=== PATIENT | female | born 1950 | race Hispanic/Latino ===

== ENCOUNTER 2018-10-04 22:24 | Emergency (ER) | payer OTHER, MEDICARE | END 2018-10-05 00:08 | disposition home or self-care (01) | LOC: EDH 22:24 | DX: I83.812 Varicose veins of left lower extremity with pain (principal); E11.9 Type 2 diabetes mellitus without complications; E07.9 Disorder of thyroid, unspecified; Z90.49 Acquired absence of other specified parts of digestive tract; Z90.89 Acquired absence of other organs; Z88.1 Allergy status to other antibiotic agents ==

== ENCOUNTER 2018-12-29 08:56 | Observation (INO) | payer OTHER, MEDICARE ==
[~2018-12-29] VITALS: Ht 170.2 cm; Wt 79.1 kg
[2018-12-29 09:22] LABS: BASOPHILS % (AUTO) 0.6 % (0.0-5.0); EOSINOPHILS % (AUTO) 0.1 % (0.0-8.0); HEMATOCRIT 39.5 % (36-48); LYMPHOCYTES % (AUTO) 8.7 % (21.0-51.0); MEAN CORPUSCULAR HEMOGLOBIN 29.8 pg (27.0-33.0); MEAN CORPUSCULAR HGB CONC 33.6 g/dL (32.0-36.0); MEAN CORPUSCULAR VOLUME 88.7 fL (79-99); MONOCYTES % (AUTO) 10.4 % (3.0-13.0); NEUTROPHILS % (AUTO) 80.2 % (40.0-77.0); PLATELET COUNT (AUTO) 165 K/uL (130-400); RED BLOOD CELL COUNT(AUTO) 4.45 MIL/uL (4.00-5.50); RED CELL DISTRIBUTION WIDTH 13.7 % (11.0-15.5); WHITE BLOOD COUNT (AUTO) 5.4 K/uL (4.8-10.8)
[2018-12-29 09:26] LABS: CREATININE 0.8 mg/dL (0.5-1.5); POTASSIUM 3.8 mmol/L (3.5-5.1)
[2018-12-29 09:41] LABS: INR 0.98 (0.85-1.15); PARTIAL THROMBOPLASTIN TIME 28.2 SEC (26.3-35.5); PROTHROMBIN TIME 10.3 SEC (9.6-11.6)
[2018-12-29 09:45] LABS: ALBUMIN 3.2 g/dL (3.5-5.0); BILIRUBIN,TOTAL 0.3 mg/dL (0.2-1.0); TOTAL PROTEIN, SERUM 6.5 g/dL (6.0-8.3)
[2018-12-29 09:56] LABS: APPEARANCE,URINE Clear (CLEAR); BILIRUBIN,URINE Negative (NEGATIVE); COLOR,URINE Yellow (YELLOW); GLUCOSE, URINE (UA) >=1000 mg/dL (NEGATIVE); KETONES,URINE Trace mg/dL (NEGATIVE); LEUKOCYTE ESTERASE ,URINE Negative (NEGATIVE); NITRATE,URINE Negative (NEGATIVE); OCCULT BLOOD,URINE Negative (NEGATIVE); PROTEIN,URINE Negative (NEGATIVE); UROBILINOGEN,URINE 0.2 mg/dL (0.2-1.0)
[2018-12-29 10:07] LABS: BACTERIA,URINE Rare /HPF (None Seen); RBC,URINE 0-1 /HPF (0-1); SQUAMOUS EPITHELIAL CELL,UR Rare /HPF (0-2); WBC,URINE 0-1 /HPF (0-1)
[2018-12-29] MEDS ORDERED: ACETAMINOPHEN 325 MG TAB ONE ×2 (11:44→22:34)
[2018-12-29] MEDS ORDERED: CEFTRIAXONE SODIUM 1 GM ONE (11:58)
[2018-12-29] MEDS ORDERED: SODIUM CHLORIDE 0.9% 100 ML IV ONE (11:58)
[2018-12-29] MEDS ORDERED: 1/2 NORMAL SALINE 1,000 ML IV SCH (14:45)
[2018-12-29] MEDS ORDERED: METFORMIN HCL 500 MG TABLET ONE (16:33)
[2018-12-29 19:15] VITALS: BP 119/60
--- NOTE | 2018-12-29 19:30 | NUR ---
ADMISSION ASSESSMENT Received pt from ER. Pt alert and oriented, no c/o of dizzyness but pt does sound like she has a cold and has a dry cough. 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 Pt lungs clear, bs x 4 quadrants present. Patent IV running 1/2NS. pending GI stool PCR and Flu a/b swab. Pt oriented to bed controls and room, will continue to monitor
[2018-12-29] MEDS: INSULIN R PO SS1 SQ SCH (21:00)
[2018-12-29] MEDS ORDERED: ACETAMINOPHEN 325 MG TAB PO PRN (22:30)
[2018-12-29 23:21] VITALS: BP 117/60
[2018-12-29] MEDS ORDERED: METF-444 PO (23:56)
[2018-12-29] MEDS ORDERED: DULA1.5P SQ (23:56)
[2018-12-29] MEDS ORDERED: LEVO88TA4 PO (23:56)
[2018-12-29] MEDS ORDERED: METO-408 PO (23:56)
[2018-12-29] MEDS ORDERED: OMEP40CA37 PO (23:56)
[2018-12-30 03:40] VITALS: BP 116/47
[2018-12-30 05:09] LABS: CREATININE 0.7 mg/dL (0.5-1.5); HEMATOCRIT 38.1 % (36-48); MEAN CORPUSCULAR HEMOGLOBIN 30.4 pg (27.0-33.0); MEAN CORPUSCULAR VOLUME 89.4 fL (79-99); NUCLEATED RED BLOOD CELLS 0.1 % (0.0-0.19); PLATELET COUNT (AUTO) 165 K/uL (130-400); POTASSIUM 3.7 mmol/L (3.5-5.1); RED BLOOD CELL COUNT(AUTO) 4.26 MIL/uL (4.00-5.50); RED CELL DISTRIBUTION WIDTH 13.9 % (11.0-15.5)
[2018-12-30] MEDS: INSULIN R PO SS1 SQ SCH (06:14)
--- NOTE | 2018-12-30 06:45 | NUR ---
DR. CLEMENCIA HESS, DC ORDERS RECEIVED
[2018-12-30] MEDS ORDERED: LEVOTHYROXINE 88 MCG TABLET PO SCH (07:30)
[2018-12-30] MEDS ORDERED: METFORMIN HCL 500 MG TABLET PO SCH (08:00)
[2018-12-30 08:21] VITALS: BP 109/78
[2018-12-30] MEDS ORDERED: METOPROLOL TARTRATE 25 MG TAB PO SCH (09:00)
[2018-12-30] MEDS ORDERED: OSELTAMIVIR PHOSPHATE 75 MG CAP PO SCH (09:00)
[2018-12-30] MEDS ORDERED: PANTOPRAZOLE SODIUM 40 MG TABLET.DR PO SCH (09:00)
[2018-12-30] MEDS ORDERED: CEFTRIAXONE SODIUM 1 GM IVP SCH (09:00)
--- NOTE | 2018-12-30 12:00 | NUR ---
PATIENT D/C HOME USING TEACH BACK TECHNIQUE RE: FOLLOW-UP APPOINTMENT WITH ON Thursday @ 3:30 P.M. IF ANY QUESTIONS PLEASE CALL HIS OFFICE AT [phone] A prescription for tamiflu will be given to you at discharge make sure to buy your prescription at discharge at your local pharmacy and take until finish for 5 days. if cough or cogestion worsens make sure to call primary doctor for recommendations. If fevers greater than 100.5 call your primary doctor. IV OUT, INTACT, AOX3, DENIES ANY DISTRESS, TELE REMOVED. SISTERS AT BEDSIDE.
[2019-01-02] MEDS ORDERED: **HM** TRULICITY 1.5MG SQ SCH (09:00)
[2019-01-05] MEDS ORDERED: NON-FORMULARY MEDICATION 1 EACH (Dulaglutide (Trulicity) 1.5 MG) SQ SCH (09:00)
== END 2018-12-30 13:00 | disposition home or self-care (01) ==
LOC: EDH 08:56 → EEVIPCON 08:56 → EDHIP 13:55 → 4BH 18:58
PROVIDERS: ADMIT Internal Medicine; ATTEND Internal Medicine
DX: K52.9 Noninfective gastroenteritis and colitis, unspecified (principal); R55 Syncope and collapse; I12.9 Hypertensive chronic kidney disease with stage 1 through stage 4 chronic kidney disease, or unspecified chronic kidney disease; N18.9 Chronic kidney disease, unspecified; E11.22 Type 2 diabetes mellitus with diabetic chronic kidney disease; R79.89 Other specified abnormal findings of blood chemistry; E86.0 Dehydration; K21.9 Gastro-esophageal reflux disease without esophagitis; M19.90 Unspecified osteoarthritis, unspecified site; S09.90XA Unspecified injury of head, initial encounter; W19.XXXA Unspecified fall, initial encounter; Y93.89 Activity, other specified; Y92.89 Other specified places as the place of occurrence of the external cause; Y99.8 Other external cause status
CPT/HCPCS: 36415 ×2; 70450; 71045; 80048; 80053; 81001; 82550 ×3; 82948 ×3; 83874; 84484 ×3; 85025; 85027; 85378; 85610; 85730; 87804 ×2; 93005; 93970; 96361; 96374; 99284; A4218; G0378 ×23; J0696 ×2

== ENCOUNTER → 2019-06-20 | Outpatient (CLI) | payer OTHER, MEDICARE ==
[~2019-06-20] MED LIST: DULA1.5P SQ; LEVO88TA4 PO; METF-444 PO; METO-408 PO; OMEP40CA37 PO
== END | disposition home or self-care (01) ==
LOC: RAH 13:00
PROVIDERS: ATTEND Internal Medicine
DX: E04.1 Nontoxic single thyroid nodule (principal)
CPT/HCPCS: 76536

== ENCOUNTER → 2019-07-15 | Outpatient (CLI) | payer MEDICARE, OTHER ==
[~2019-07-15] MED LIST changes: +OMEP40CA13 PO; -OMEP40CA37 PO
[2019-07-15 10:44] LABS: EOSINOPHILS % (AUTO) 0.8 % (0.0-8.0); LYMPHOCYTES % (AUTO) 26.4 % (21.0-51.0); MEAN CORPUSCULAR HEMOGLOBIN 29.9 pg (27.0-33.0); MEAN CORPUSCULAR HGB CONC 33.7 g/dL (32.0-36.0); MEAN CORPUSCULAR VOLUME 88.7 fL (79-99); MONOCYTES % (AUTO) 6.5 % (3.0-13.0); NEUTROPHILS % (AUTO) 65.3 % (40.0-77.0); PLATELET COUNT (AUTO) 215 K/uL (130-400); RED BLOOD CELL COUNT(AUTO) 5.07 MIL/uL (4.00-5.50)
[2019-07-15 10:58] LABS: HEMOGLOBIN A1C 7.8 % (4.0-6.0)
[2019-07-15 11:10] LABS: APPEARANCE,URINE Clear (CLEAR); BILIRUBIN,URINE Negative (NEGATIVE); COLOR,URINE Yellow (YELLOW); GLUCOSE, URINE (UA) >=1000 mg/dL (NEGATIVE); KETONES,URINE Negative (NEGATIVE); LEUKOCYTE ESTERASE ,URINE Negative (NEGATIVE); NITRATE,URINE Negative (NEGATIVE); OCCULT BLOOD,URINE Negative (NEGATIVE); PROTEIN,URINE Negative (NEGATIVE); UROBILINOGEN,URINE 0.2 mg/dL (0.2-1.0)
[2019-07-15 11:28] LABS: BACTERIA,URINE Rare /HPF (None Seen); RBC,URINE 0-1 /HPF (0-1); SQUAMOUS EPITHELIAL CELL,UR Rare /HPF (0-2); WBC,URINE 0-1 /HPF (0-1)
[2019-07-15 11:37] LABS: ALBUMIN 3.8 g/dL (3.5-5.0); BILIRUBIN,TOTAL 0.6 mg/dL (0.2-1.0); POTASSIUM 4.4 mmol/L (3.5-5.1); THYROID STIMULATING HORMONE 2.76 uIU/mL (0.36-3.74); TOTAL PROTEIN, SERUM 7.7 g/dL (6.0-8.3)
== END | disposition home or self-care (01) ==
LOC: LAB 09:33
PROVIDERS: ATTEND Internal Medicine
DX: E11.9 Type 2 diabetes mellitus without complications (principal); I10 Essential (primary) hypertension; Z79.899 Other long term (current) drug therapy
CPT/HCPCS: 36415; 80053; 80061; 81001; 82043; 83036; 84443; 85025; 87088; A6260

== ENCOUNTER → 2019-08-01 | Outpatient (CLI) | payer OTHER, MEDICARE ==
--- NOTE | 2019-08-01 09:25 | NUR ---
U/S GUIDED BX LEFT THYROID NODULE PROCEDURE PERFORMED BY DR. FLORES. PUNCTURE SITE LEFT SIDE NECK. PATIENT TOLERATED PROCEDURE WELL. SPECIMEN X 5 COLLECTED AND SENT TO LAB. END OF PROCEDURE AT 930. BIOPSY NEEDLE REMOVED AND DRESSING APPLIED. NO BLEEDING NOTED. PATIENT GIVEN DISCHARGE INSTRUCTIONS. VERBALIZED UNDERSTANDING. PT DISCHARGED STABLE, AAO X 3, WITH NO C/O PAIN.
[2019-08-01 09:31] LABS: INR 0.96 (0.85-1.15); PARTIAL THROMBOPLASTIN TIME 26.2 SEC (26.3-35.5); PROTHROMBIN TIME 9.9 SEC (9.6-11.6)
== END ==
LOC: RAH 10:00
PROVIDERS: ATTEND Internal Medicine
DX: E04.1 Nontoxic single thyroid nodule (principal); E78.5 Hyperlipidemia, unspecified; M19.90 Unspecified osteoarthritis, unspecified site; H40.9 Unspecified glaucoma; K21.9 Gastro-esophageal reflux disease without esophagitis; I12.9 Hypertensive chronic kidney disease with stage 1 through stage 4 chronic kidney disease, or unspecified chronic kidney disease; E11.22 Type 2 diabetes mellitus with diabetic chronic kidney disease; N18.2 Chronic kidney disease, stage 2 (mild); Z79.84 Long term (current) use of oral hypoglycemic drugs; Z79.899 Other long term (current) drug therapy; Z72.89 Other problems related to lifestyle; Z98.890 Other specified postprocedural states; Z90.49 Acquired absence of other specified parts of digestive tract; Z88.1 Allergy status to other antibiotic agents; Z82.49 Family history of ischemic heart disease and other diseases of the circulatory system; Z83.3 Family history of diabetes mellitus
CPT/HCPCS: 36415; 60100; 76942; 85610; 85730; 88172; 88173; 88305; C1887

== ENCOUNTER 2020-07-24 07:40 | Day surgery (SDC) | payer OTHER, MEDICARE ==
[~2020-07-24] VITALS: Ht 170.2 cm; Wt 71.2 kg
[~2020-07-24 07:40] MED LIST changes: +SODIUM CHLORIDE 0.9% 1000ML 1,000 ML IV ONE
[2020-07-24 07:55] VITALS: BP 131/64
[2020-07-24] MEDS ORDERED: MULT-1258 PO (08:43)
[2020-07-24] MEDS ORDERED: EMPA25TA PO (08:43)
[2020-07-24] MEDS ORDERED: CINN500C PO (08:43)
[2020-07-24] MEDS ORDERED: ATOR20TA65 PO (08:43)
[2020-07-24] MEDS ORDERED: PROPOFOL 10 MG/ML 20ML VIAL IV ONE (11:02)
[2020-07-24] MEDS ORDERED: MIDAZOLAM HCL 1 MG/ML 2ML VIAL ONE (11:02)
[2020-07-24 11:40] VITALS: BP 86/37
[2020-07-24 11:45] VITALS: BP 88/35
[2020-07-24 11:50] VITALS: BP 102/40
[2020-07-24 11:55] VITALS: BP 102/43
[2020-07-24 12:12] VITALS: BP 98/43
== END 2020-07-24 12:29 | disposition home or self-care (01) ==
LOC: ENDO 07:40 → DAH 07:40 → ENDO 12:29
PROVIDERS: ATTEND Internal Medicine Gastroenterology
DX: R10.31 Right lower quadrant pain (principal); R93.2 Abnormal findings on diagnostic imaging of liver and biliary tract; R11.2 Nausea with vomiting, unspecified; Z20.828 Contact with and (suspected) exposure to other viral communicable diseases; E78.5 Hyperlipidemia, unspecified; K21.9 Gastro-esophageal reflux disease without esophagitis; E11.9 Type 2 diabetes mellitus without complications; E06.3 Autoimmune thyroiditis; E03.9 Hypothyroidism, unspecified; Z90.49 Acquired absence of other specified parts of digestive tract; Z79.84 Long term (current) use of oral hypoglycemic drugs; Z79.899 Other long term (current) drug therapy; Z88.1 Allergy status to other antibiotic agents
CPT/HCPCS: 36415; 43237; 45378; 82948 ×3; A4215; A4221; A4222; A4223; A4606; A4620; A4663; C9803; J2250; J2704; J7030; U0003

== ENCOUNTER → 2020-12-26 | Outpatient (CLI) | payer OTHER, MEDICARE ==
[~2020-12-26] MED LIST changes: +ATOR20TA65 PO; +CINN500C PO; +EMPA25TA PO; +MULT-1258 PO; -SODIUM CHLORIDE 0.9% 1000ML 1,000 ML IV ONE
[2020-12-26 08:47] LABS: BASOPHILS % (AUTO) 0.8 % (0.0-5.0); EOSINOPHILS % (AUTO) 1.5 % (0.0-8.0); HEMATOCRIT 45.8 % (36-48); LYMPHOCYTES % (AUTO) 31.8 % (21.0-51.0); MEAN CORPUSCULAR HEMOGLOBIN 29.4 pg (27.0-33.0); MEAN CORPUSCULAR HGB CONC 32.3 g/dL (32.0-36.0); MEAN CORPUSCULAR VOLUME 90.9 fL (79-99); MONOCYTES % (AUTO) 6.1 % (3.0-13.0); NEUTROPHILS % (AUTO) 59.3 % (40.0-77.0); PLATELET COUNT (AUTO) 244 K/uL (130-400); RED BLOOD CELL COUNT(AUTO) 5.04 MIL/uL (4.00-5.50); RED CELL DISTRIBUTION WIDTH 13.4 % (11.0-15.5); WHITE BLOOD COUNT (AUTO) 6.2 K/uL (4.8-10.8)
[2020-12-26 09:05] LABS: HEMOGLOBIN A1C 6.8 % (4.0-6.0)
[2020-12-26 09:34] LABS: ALBUMIN 4.1 g/dL (3.5-5.0); BILIRUBIN,DIRECT 0.1 mg/dL (0.0-0.3); BILIRUBIN,TOTAL 0.5 mg/dL (0.2-1.0); CREATININE 0.7 mg/dL (0.5-1.5); POTASSIUM 4.5 mmol/L (3.5-5.1); THYROID STIMULATING HORMONE 2.63 uIU/mL (0.36-3.74); TOTAL PROTEIN, SERUM 7.9 g/dL (6.0-8.3)
== END | disposition home or self-care (01) ==
LOC: LAB 08:03
PROVIDERS: ATTEND Internal Medicine
DX: E03.9 Hypothyroidism, unspecified (principal); E06.3 Autoimmune thyroiditis; E11.22 Type 2 diabetes mellitus with diabetic chronic kidney disease
CPT/HCPCS: 36415; 80053; 80061; 80076; 82043; 82306; 82607; 83036; 84443; 85025

== ENCOUNTER → 2021-02-07 | Outpatient (CLI) | payer OTHER, MEDICARE | END | disposition home or self-care (01) | LOC: OIH 15:21 | PROVIDERS: ATTEND Internal Medicine | DX: R05 Cough (principal) | CPT/HCPCS: 71046 ==

== ENCOUNTER → 2021-04-18 | Outpatient (CLI) | payer OTHER, MEDICARE ==
[~2021-04-18] MED LIST changes: -OMEP40CA13 PO; +OMEP40CA21 PO
[2021-04-18 09:02] LABS: BASOPHILS % (AUTO) 0.6 % (0.0-5.0); EOSINOPHILS % (AUTO) 1.5 % (0.0-8.0); LYMPHOCYTES % (AUTO) 26.8 % (21.0-51.0); MEAN CORPUSCULAR HEMOGLOBIN 29.5 pg (27.0-33.0); MEAN CORPUSCULAR HGB CONC 32.1 g/dL (32.0-36.0); MEAN CORPUSCULAR VOLUME 91.9 fL (79-99); MONOCYTES % (AUTO) 7.2 % (3.0-13.0); NEUTROPHILS % (AUTO) 63.4 % (40.0-77.0); PLATELET COUNT (AUTO) 271 K/uL (130-400); RED BLOOD CELL COUNT(AUTO) 4.68 MIL/uL (4.00-5.50); RED CELL DISTRIBUTION WIDTH 13.3 % (11.0-15.5); WHITE BLOOD COUNT (AUTO) 6.5 K/uL (4.8-10.8)
[2021-04-18 09:42] LABS: ALBUMIN 3.7 g/dL (3.5-5.0); BILIRUBIN,DIRECT 0.1 mg/dL (0.0-0.3); BILIRUBIN,TOTAL 0.4 mg/dL (0.2-1.0); CREATININE 0.8 mg/dL (0.5-1.5); POTASSIUM 4.5 mmol/L (3.5-5.1); THYROID STIMULATING HORMONE 3.19 uIU/mL (0.36-3.74); TOTAL PROTEIN, SERUM 7.4 g/dL (6.0-8.3)
== END | disposition home or self-care (01) ==
LOC: LAB 07:54
PROVIDERS: ATTEND Internal Medicine
DX: E06.3 Autoimmune thyroiditis (principal); E11.22 Type 2 diabetes mellitus with diabetic chronic kidney disease; E78.5 Hyperlipidemia, unspecified; I70.0 Atherosclerosis of aorta; K76.0 Fatty (change of) liver, not elsewhere classified; R05 Cough
CPT/HCPCS: 36415; 80053; 80061; 80076; 82043; 82306; 82607; 83036; 84443; 85025

== ENCOUNTER → 2022-04-11 | Outpatient (CLI) | payer OTHER, MEDICARE | END | disposition home or self-care (01) | LOC: RAH 09:05 | PROVIDERS: ATTEND Internal Medicine | DX: Z12.31 Encounter for screening mammogram for malignant neoplasm of breast (principal) | CPT/HCPCS: 77067 ==

== ENCOUNTER → 2022-04-16 | Outpatient (CLI) | payer OTHER, MEDICARE ==
[2022-04-16 08:31] LABS: BASOPHILS % (AUTO) 0.7 % (0.0-5.0); EOSINOPHILS % (AUTO) 1.7 % (0.0-8.0); HEMATOCRIT 46.5 % (36-48); LYMPHOCYTES % (AUTO) 26.2 % (21.0-51.0); MEAN CORPUSCULAR HEMOGLOBIN 29.1 pg (27.0-33.0); MEAN CORPUSCULAR HGB CONC 32.3 g/dL (32.0-36.0); MEAN CORPUSCULAR VOLUME 90.3 fL (79-99); MONOCYTES % (AUTO) 8.3 % (3.0-13.0); NEUTROPHILS % (AUTO) 62.4 % (40.0-77.0); PLATELET COUNT (AUTO) 248 K/uL (130-400); RED BLOOD CELL COUNT(AUTO) 5.15 MIL/uL (4.00-5.50); RED CELL DISTRIBUTION WIDTH 13.5 % (11.0-15.5); WHITE BLOOD COUNT (AUTO) 7.5 K/uL (4.8-10.8)
[2022-04-16 08:40] LABS: HEMOGLOBIN A1C 7.6 % (4.0-6.0)
[2022-04-16 08:50] LABS: ALBUMIN 4.1 g/dL (3.5-5.0); BILIRUBIN,DIRECT 0.2 mg/dL (0.0-0.3); BILIRUBIN,TOTAL 0.6 mg/dL (0.2-1.0); CREATININE 0.8 mg/dL (0.5-1.5); POTASSIUM 4.7 mmol/L (3.5-5.1); THYROID STIMULATING HORMONE 2.58 uIU/mL (0.36-3.74); TOTAL PROTEIN, SERUM 7.9 g/dL (6.0-8.3)
== END | disposition home or self-care (01) ==
LOC: LAB 08:07
PROVIDERS: ATTEND Internal Medicine
DX: E04.1 Nontoxic single thyroid nodule (principal); E78.5 Hyperlipidemia, unspecified; E11.65 Type 2 diabetes mellitus with hyperglycemia; M54.12 Radiculopathy, cervical region; M62.838 Other muscle spasm; R29.898 Other symptoms and signs involving the musculoskeletal system
CPT/HCPCS: 36415; 80053; 80061; 82043; 82247; 82248; 83036; 84443; 85025

== ENCOUNTER 2022-05-05 10:45 | Emergency (ER) | payer OTHER, MEDICARE ==
[~2022-05-05] VITALS: Ht 167.6 cm; Wt 72.6 kg
[2022-05-05] MEDS ORDERED: LIDOCAINE 2%-EPI 1:200,000 20 ML VIAL IJ SCH (11:00)
[2022-05-05] MEDS ORDERED: TETANUS/DIPHTHERIA TOXOID [ADULT] 0.5 ML VIAL IM ONE ×2 (11:06→11:30)
[2022-05-05 11:27] VITALS: BP 114/62
[2022-05-05] MEDS ORDERED: AMOX-427 PO (11:30)
== END 2022-05-05 11:32 | disposition home or self-care (01) ==
LOC: EDH 10:45
DX: S91.011A Laceration without foreign body, right ankle, initial encounter (principal); E11.9 Type 2 diabetes mellitus without complications; Z79.899 Other long term (current) drug therapy; Z90.49 Acquired absence of other specified parts of digestive tract; X58.XXXA Exposure to other specified factors, initial encounter; Y93.89 Activity, other specified; Y92.89 Other specified places as the place of occurrence of the external cause; Y99.8 Other external cause status
CPT/HCPCS: 99283; 90714; 90471; 12001; J3490

== ENCOUNTER → 2022-08-21 | Outpatient (CLI) | payer OTHER, MEDICARE ==
[~2022-08-21] MED LIST changes: +AMOX-427 PO
[2022-08-21 12:43] LABS: BASOPHILS % (AUTO) 0.7 % (0.0-5.0); EOSINOPHILS % (AUTO) 1.2 % (0.0-8.0); HEMATOCRIT 46.3 % (36-48); LYMPHOCYTES % (AUTO) 34.1 % (21.0-51.0); MEAN CORPUSCULAR HEMOGLOBIN 28.5 pg (27.0-33.0); MEAN CORPUSCULAR VOLUME 89.2 fL (79-99); MONOCYTES % (AUTO) 8.3 % (3.0-13.0); PLATELET COUNT (AUTO) 235 K/uL (130-400); RED BLOOD CELL COUNT(AUTO) 5.19 MIL/uL (4.00-5.50); RED CELL DISTRIBUTION WIDTH 13.2 % (11.0-15.5); WHITE BLOOD COUNT (AUTO) 6.8 K/uL (4.8-10.8)
[2022-08-21 13:32] LABS: ALANINE AMINOTRANSFERASE 21 U/L (12-78); ALBUMIN 3.7 g/dL (3.5-5.0); ASPARTATE AMINOTRANSFERASE 13 U/L (10-37); CARBON DIOXIDE 29 mmol/L (21-32); CHLORIDE 97 mmol/L (101-111); CREATININE 0.8 mg/dL (0.5-1.5); GLOMERULAR FILTR. RATE CALC 75 mL/min (>60); GLUCOSE,RANDOM 217 mg/dL (70-105); POTASSIUM 4.4 mmol/L (3.5-5.1); SODIUM SERUM 134 mmol/L (136-145); THYROID STIMULATING HORMONE 2.93 uIU/mL (0.36-3.74); TOTAL PROTEIN, SERUM 7.9 g/dL (6.0-8.3); UREA NITROGEN, BLOOD 12 mg/dL (7-18); URIC ACID 2.4 mg/dL (2.6-7.2)
[2022-08-21 13:33] LABS: CRP QUANTITATIVE < 2.00 mg/L (0.00-9.0)
[2022-08-21 13:51] LABS: ERYTHROCYTE SEDIMENTATION RATE 18 MM/HR (0-30)
== END | disposition home or self-care (01) ==
LOC: LAB 11:43
PROVIDERS: ATTEND Internal Medicine
DX: L03.119 Cellulitis of unspecified part of limb (principal); M10.9 Gout, unspecified
CPT/HCPCS: 36415; 80053; 84443; 84550; 85025; 85651; 86140

== ENCOUNTER 2022-09-26 03:58 | Emergency (ER) | payer OTHER, MEDICARE ==
[~2022-09-26] VITALS: Ht 167.6 cm; Wt 77.1 kg
[2022-09-26 04:49] LABS: EOSINOPHILS % (AUTO) 0.4 % (0.0-8.0); HEMATOCRIT 42.7 % (36-48); LYMPHOCYTES % (AUTO) 25.2 % (21.0-51.0); MEAN CORPUSCULAR HEMOGLOBIN 28.6 pg (27.0-33.0); MEAN CORPUSCULAR VOLUME 86.6 fL (79-99); MONOCYTES % (AUTO) 13.9 % (3.0-13.0); NEUTROPHILS % (AUTO) 58.5 % (40.0-77.0); PLATELET COUNT (AUTO) 132 K/uL (130-400); RED BLOOD CELL COUNT(AUTO) 4.93 MIL/uL (4.00-5.50); RED CELL DISTRIBUTION WIDTH 13.7 % (11.0-15.5); WHITE BLOOD COUNT (AUTO) 5.1 K/uL (4.8-10.8)
[2022-09-26] MEDS ORDERED: ACETAMINOPHEN 500 MG TABLET PO ONE (06:00)
[2022-09-26 06:04] LABS: CREATININE 0.8 mg/dL (0.5-1.5); POTASSIUM 4.2 mmol/L (3.5-5.1)
[2022-09-26 06:08] LABS: ALBUMIN 3.6 g/dL (3.5-5.0); TOTAL PROTEIN, SERUM 7.6 g/dL (6.0-8.3)
[2022-09-26] MEDS ORDERED: NIRM1TAB PO (08:30)
[2022-09-26 08:44] VITALS: BP 111/48
== END 2022-09-26 08:45 | disposition home or self-care (01) ==
LOC: EDH 03:58
DX: U07.1 COVID-19 (principal); E11.9 Type 2 diabetes mellitus without complications; E03.9 Hypothyroidism, unspecified; Z79.899 Other long term (current) drug therapy; Z88.0 Allergy status to penicillin; Z90.49 Acquired absence of other specified parts of digestive tract
CPT/HCPCS: 99285; 71045; 87635; 84484; 80053; 85025; 87880; 87804 ×2; 36415; 93005; C9803

== ENCOUNTER → 2022-12-11 | Outpatient (CLI) | payer OTHER, MEDICARE ==
[~2022-12-11] MED LIST changes: +NIRM1TAB PO
== END | disposition home or self-care (01) ==
LOC: RAH 10:02
PROVIDERS: ATTEND Internal Medicine
DX: M77.32 Calcaneal spur, left foot (principal)
CPT/HCPCS: 73620

== ENCOUNTER → 2023-01-06 | Outpatient (CLI) | payer OTHER, MEDICARE ==
[2023-01-06 10:53] LABS: BASOPHILS % (AUTO) 0.7 % (0.0-5.0); EOSINOPHILS % (AUTO) 1.4 % (0.0-8.0); HEMATOCRIT 44.8 % (36-48); MEAN CORPUSCULAR HEMOGLOBIN 29.1 pg (27.0-33.0); MEAN CORPUSCULAR HGB CONC 31.9 g/dL (32.0-36.0); MEAN CORPUSCULAR VOLUME 91.2 fL (79-99); MONOCYTES % (AUTO) 9.5 % (3.0-13.0); NEUTROPHILS % (AUTO) 53.9 % (40.0-77.0); PLATELET COUNT (AUTO) 210 K/uL (130-400); RED BLOOD CELL COUNT(AUTO) 4.91 MIL/uL (4.00-5.50); RED CELL DISTRIBUTION WIDTH 13.5 % (11.0-15.5); WHITE BLOOD COUNT (AUTO) 5.8 K/uL (4.8-10.8)
[2023-01-06 10:59] LABS: APPEARANCE,URINE CLEAR (CLEAR); BILIRUBIN,URINE NEGATIVE (NEGATIVE); COLOR,URINE LIGHT-YELLOW (YELLOW); GLUCOSE, URINE (UA) >=1000 mg/dL (NEGATIVE); KETONES,URINE NEGATIVE (NEGATIVE); LEUKOCYTE ESTERASE ,URINE 25 Leu/uL (NEGATIVE); NITRATE,URINE NEGATIVE (NEGATIVE); OCCULT BLOOD,URINE NEGATIVE (NEGATIVE); PROTEIN,URINE NEGATIVE (NEGATIVE); UROBILINOGEN,URINE 0.2 mg/dL (0.2-1.0)
[2023-01-06 11:03] LABS: HEMOGLOBIN A1C 8.8 % (4.0-6.0)
[2023-01-06 11:06] LABS: MUCUS,URINE RARE LPF (None Seen); SQUAMOUS EPITHELIAL CELL,UR MOD /HPF (0-2)
[2023-01-06 11:08] LABS: BACTERIA,URINE Few /HPF (None Seen)
[2023-01-06 11:15] LABS: ALBUMIN 3.8 g/dL (3.5-5.0); BILIRUBIN,DIRECT 0.1 mg/dL (0.0-0.3); CREATININE 0.7 mg/dL (0.5-1.5); POTASSIUM 4.3 mmol/L (3.5-5.1); THYROID STIMULATING HORMONE 2.19 uIU/mL (0.36-3.74); TOTAL PROTEIN, SERUM 7.5 g/dL (6.0-8.3)
== END | disposition home or self-care (01) ==
LOC: LAB 09:54
PROVIDERS: ATTEND Internal Medicine
DX: R07.89 Other chest pain (principal); E03.9 Hypothyroidism, unspecified; E04.1 Nontoxic single thyroid nodule; E11.65 Type 2 diabetes mellitus with hyperglycemia; E78.5 Hyperlipidemia, unspecified; M21.961 Unspecified acquired deformity of right lower leg; M79.672 Pain in left foot
CPT/HCPCS: 36415; 71046; 71100; 80053; 80061; 80076; 81001; 82043; 83036; 84443; 85025

== ENCOUNTER → 2023-07-21 | Outpatient (CLI) | payer OTHER, MEDICARE ==
[2023-07-21 08:45] LABS: BASOPHILS # (AUTO) 0.05 K/uL (0.00-0.20); EOSINOPHILS # (AUTO) 0.06 K/uL (0.00-0.70); EOSINOPHILS % (AUTO) 1.2 % (0.0-8.0); HEMATOCRIT 42.8 % (36-48); IMMATURE GRANULOCYTE ABSOLUTE 0.02 K/uL (0-1); LYMPHOCYTES # (AUTO) 1.6 K/uL (1.0-4.8); LYMPHOCYTES % (AUTO) 31.6 % (21.0-51.0); MEAN CORPUSCULAR HEMOGLOBIN 29.7 pg (27.0-33.0); MEAN CORPUSCULAR HGB CONC 32.7 g/dL (32.0-36.0); MEAN CORPUSCULAR VOLUME 90.7 fL (79-99); MONOCYTES # (AUTO) 0.4 K/uL (0.1-1.0); MONOCYTES % (AUTO) 8.1 % (3.0-13.0); NEUTROPHILS % (AUTO) 57.7 % (40.0-77.0); PLATELET COUNT (AUTO) 234 K/uL (130-400); RED BLOOD CELL COUNT(AUTO) 4.72 MIL/uL (4.00-5.50); RED CELL DISTRIBUTION WIDTH 13.5 % (11.0-15.5); WHITE BLOOD COUNT (AUTO) 5.2 K/uL (4.8-10.8)
[2023-07-21 08:53] LABS: HEMOGLOBIN A1C 6.7 % (4.0-6.0)
[2023-07-21 09:05] LABS: ALBUMIN 3.6 g/dL (3.5-5.0); BILIRUBIN,TOTAL 0.5 mg/dL (0.2-1.0); CREATININE 0.8 mg/dL (0.5-1.5); POTASSIUM 4.5 mmol/L (3.5-5.1); TOTAL PROTEIN, SERUM 7.3 g/dL (6.0-8.3)
== END | disposition home or self-care (01) ==
LOC: LAB 07:59
PROVIDERS: ATTEND Internal Medicine
DX: E11.65 Type 2 diabetes mellitus with hyperglycemia (principal); E03.9 Hypothyroidism, unspecified; E78.5 Hyperlipidemia, unspecified; K75.81 Nonalcoholic steatohepatitis (NASH); L80 Vitiligo; M41.9 Scoliosis, unspecified
CPT/HCPCS: 36415; 80053; 83036; 85025

== ENCOUNTER → 2023-07-30 | Outpatient (CLI) | payer OTHER, MEDICARE | END | disposition home or self-care (01) | LOC: RAH 13:43 | PROVIDERS: ATTEND Internal Medicine | DX: G44.209 Tension-type headache, unspecified, not intractable (principal); Z82.49 Family history of ischemic heart disease and other diseases of the circulatory system | CPT/HCPCS: 70450 ==

== ENCOUNTER → 2024-01-20 | Outpatient (CLI) | payer OTHER, MEDICARE ==
[2024-01-20 09:03] LABS: BASOPHILS # (AUTO) 0.06 K/uL (0.00-0.20); EOSINOPHILS # (AUTO) 0.23 K/uL (0.00-0.70); EOSINOPHILS % (AUTO) 3.9 % (0.0-8.0); IMMATURE GRANULOCYTE ABSOLUTE 0.03 K/uL (0-1); LYMPHOCYTES # (AUTO) 1.8 K/uL (1.0-4.8); MEAN CORPUSCULAR HEMOGLOBIN 29.6 pg (27.0-33.0); MEAN CORPUSCULAR HGB CONC 32.7 g/dL (32.0-36.0); MEAN CORPUSCULAR VOLUME 90.5 fL (79-99); MONOCYTES # (AUTO) 0.5 K/uL (0.1-1.0); MONOCYTES % (AUTO) 8.9 % (3.0-13.0); NEUTROPHILS # (AUTO) 3.2 K/uL (1.8-7.7); NEUTROPHILS % (AUTO) 54.7 % (40.0-77.0); PLATELET COUNT (AUTO) 211 K/uL (130-400); RED BLOOD CELL COUNT(AUTO) 4.97 MIL/uL (4.00-5.50); RED CELL DISTRIBUTION WIDTH 13.7 % (11.0-15.5); WHITE BLOOD COUNT (AUTO) 5.8 K/uL (4.8-10.8)
[2024-01-20 09:14] LABS: HEMOGLOBIN A1C 6.4 % (4.0-6.0)
[2024-01-20 09:34] LABS: ALBUMIN 3.7 g/dL (3.5-5.0); BILIRUBIN,TOTAL 0.6 mg/dL (0.2-1.0); CREATININE 0.8 mg/dL (0.5-1.0); THYROID STIMULATING HORMONE 3.73 uIU/mL (0.36-3.74); TOTAL PROTEIN, SERUM 7.7 g/dL (6.0-8.3)
[2024-01-20 10:08] LABS: ERYTHROCYTE SEDIMENTATION RATE 9 MM/HR (0-30)
== END | disposition home or self-care (01) ==
LOC: LAB 08:19
PROVIDERS: ATTEND Internal Medicine
DX: M19.012 Primary osteoarthritis, left shoulder (principal); M43.8X6 Other specified deforming dorsopathies, lumbar region; M48.56XA Collapsed vertebra, not elsewhere classified, lumbar region, initial encounter for fracture; M47.816 Spondylosis without myelopathy or radiculopathy, lumbar region; E11.65 Type 2 diabetes mellitus with hyperglycemia; K75.81 Nonalcoholic steatohepatitis (NASH); M54.50 Low back pain, unspecified
CPT/HCPCS: 36415; 72100; 73030; 73502; 80053; 82550; 82728; 83036; 84443; 85025; 85651; 86038; 86140; 86215; 86235; 86431

== ENCOUNTER → 2024-03-04 | Outpatient (CLI) | payer OTHER, MEDICARE | END | disposition home or self-care (01) | LOC: RAH 13:07 | PROVIDERS: ATTEND Internal Medicine | DX: M51.17 Intervertebral disc disorders with radiculopathy, lumbosacral region (principal); M47.26 Other spondylosis with radiculopathy, lumbar region | CPT/HCPCS: 72148 ==

== ENCOUNTER 2024-04-06 16:06 | Inpatient (IN) | payer OTHER, MEDICARE ==
[~2024-04-06] VITALS: Ht 167.6 cm; Wt 62.1 kg
[~2024-04-06 16:06] MED LIST changes: +IBUP-2070 PO
[2024-04-06 16:45] VITALS: O2SAT 97
[2024-04-06] MEDS ORDERED: HYDROMORPHONE 0.5 MG SYG (0.5MG/0.5ML) IVP PRN (17:30)
[2024-04-06 18:56] LABS: HEMATOCRIT 39.6 % (36-48); MEAN CORPUSCULAR HEMOGLOBIN 29.5 pg (27.0-33.0); MEAN CORPUSCULAR HGB CONC 33.1 g/dL (32.0-36.0); MEAN CORPUSCULAR VOLUME 89.2 fL (79-99); RED BLOOD CELL COUNT(AUTO) 4.44 MIL/uL (4.00-5.50); RED CELL DISTRIBUTION WIDTH 13.8 % (11.0-15.5); WHITE BLOOD COUNT (AUTO) 10.9 K/uL (4.8-10.8)
[2024-04-06] MEDS: VANCOMYCIN 1G VIAL IRRIG ONE (19:00)
[2024-04-06 19:16] LABS: POTASSIUM 4.2 mmol/L (3.5-5.1)
[2024-04-06] MEDS: HYDROCODONE/ACETAMINOPHEN 7.5/325 MG TAB PO PRN (19:30)
[2024-04-06 20:00] VITALS: BP 116/65; PULSE 85; RESP 18; O2SAT 96
[2024-04-06] MEDS: 0.9%NACL 1000ML 1,000 ML IV SCH (20:18)
[2024-04-06] MEDS ORDERED: ALEN70TA80 PO (20:47)
[2024-04-06] MEDS ORDERED: TIRZ7.5P SQ (20:53)
[2024-04-06] MEDS ORDERED: LEVO75TA10 PO (20:53)
[2024-04-06] MEDS: ENOXAPARIN SODIUM 30 MG/0.3 ML SQ ONE (20:58)
[2024-04-06] MEDS: INSULIN HUMULIN R 100 UNIT/ML 3ML SQ SCH (20:59)
[2024-04-07] VITALS (29 sets, daily range): BP systolic 107–144; BP diastolic 45–78; PULSE 53–100; RESP 13–19; O2SAT 100
[2024-04-07] MEDS: MORPHINE 2 MG SYG IVP PRN (04:59)
[2024-04-07] MEDS ORDERED: CEFAZOLIN SODIUM 2 GM VIAL IVPB PRN (08:30)
[2024-04-07] MEDS: 0.9%NACL 1000ML 1,000 ML IV ONE (11:09)
[2024-04-07] MEDS: CEFAZOLIN SODIUM 2 GM VIAL ONE (11:10)
[2024-04-07] MEDS: FAMOTIDINE 20MG VIAL IV ONE (11:19)
[2024-04-07] MEDS ORDERED: PROPOFOL 10 MG/ML 20ML VIAL IV ONE (11:51)
[2024-04-07] MEDS ORDERED: MIDAZOLAM HCL 1 MG/ML 2ML VIAL ONE (11:51)
[2024-04-07] MEDS ORDERED: FENTANYL CITRATE PF 50 MCG/1 ML 2ML VIAL ONE ×3 (11:51→16:46)
[2024-04-07] MEDS ORDERED: ROPIVACAINE 0.5% 5MG/ML 30ML ONE (12:46)
[2024-04-07] MEDS ORDERED: ROCURONIUM BROMIDE 10MG/1ML 5ML VL ONE (12:46)
[2024-04-07] MEDS: CEFAZOLIN SODIUM 2 GM VIAL IVPB ONE (13:30)
[2024-04-07] MEDS ORDERED: ONDANSETRON 4MG INJ ONE (14:23)
[2024-04-07] MEDS ORDERED: CEFAZOLIN SODIUM 1 GM VIAL ONE ×2 (14:47→15:52)
[2024-04-07] MEDS: CEFAZOLIN SODIUM 1 GM VIAL IRRIG ONE (16:06)
[2024-04-07] MEDS ORDERED: NEOSTIGMINE METHYLSULFATE 1MG/ML IV ONE (16:46)
[2024-04-07] MEDS ORDERED: GLYCOPYRROLATE 0.2 MG/ML 5 ML VIAL ONE (16:46)
[2024-04-07] MEDS ORDERED: FERROUS FUMARATE 324 MG TABLET PO PRN (17:30)
[2024-04-07] MEDS ORDERED: POTASSIUM CHLORIDE 20MEQ/100ML 100 ML IV PRN (17:30)
[2024-04-07] MEDS ORDERED: CALCIUM CARB 500MG PO PRN (17:30)
[2024-04-07] MEDS ORDERED: KCL 20 MEQ ERTAB PO PRN (17:30)
[2024-04-07] MEDS ORDERED: POTASSIUM CHLORIDE 10% ELIXIR 20 MEQ/15 ML UDCUP PO PRN (17:30)
[2024-04-07] MEDS ORDERED: PROMETHAZINE HCL 25 MG/ML 1ML AMPULE IM PRN (17:30)
[2024-04-07] MEDS: ACETAMINOPHEN 500 MG TABLET PO SCH (17:30)
[2024-04-07] MEDS ORDERED: TEMAZEPAM 15 MG CAPSULE PO PRN (17:30)
[2024-04-07] MEDS ORDERED: TRAMADOL HCL 50 MG TABLET PO PRN (17:30)
[2024-04-07] MEDS: MEPERIDINE-PF 25 MG/ML SYG ONE (17:46)
[2024-04-07] MEDS: 0.9%NACL 1000ML 1,000 ML IV SCH (18:19)
[2024-04-07] MEDS: CEFAZOLIN SODIUM 2 GM VIAL IVPB SCH (19:22)
[2024-04-07] MEDS: FAMOTIDINE 20MG TAB PO SCH (19:23)
[2024-04-07] MEDS: INSULIN HUMULIN R 100 UNIT/ML 3ML SQ SCH (21:00)
[2024-04-07] MEDS: DiphenhydrAMINE HCL 50 MG/ML VIAL IVP PRN (22:06)
[2024-04-08] VITALS (8 sets, daily range): BP systolic 118–147; BP diastolic 51–65; PULSE 78–88; RESP 18; O2SAT 98–99
[2024-04-08 04:41] LABS: HEMATOCRIT 33.6 % (36-48); MEAN CORPUSCULAR HEMOGLOBIN 29.6 pg (27.0-33.0); MEAN CORPUSCULAR HGB CONC 32.7 g/dL (32.0-36.0); MEAN CORPUSCULAR VOLUME 90.6 fL (79-99); RED BLOOD CELL COUNT(AUTO) 3.71 MIL/uL (4.00-5.50); RED CELL DISTRIBUTION WIDTH 13.8 % (11.0-15.5); WHITE BLOOD COUNT (AUTO) 8.2 K/uL (4.8-10.8)
[2024-04-08 04:54] LABS: CREATININE 0.7 mg/dL (0.5-1.0); POTASSIUM 3.9 mmol/L (3.5-5.1)
[2024-04-08] MEDS: OXYCODONE HCL 5 MG TAB PO PRN (06:35)
[2024-04-08] MEDS: POLYETHYLENE GLYCOL 3350 17 GM POWD.PACK PO SCH (08:41)
[2024-04-08] MEDS: ENOXAPARIN SODIUM 40 MG/0.4 ML SYRINGE SQ SCH (08:41)
[2024-04-08] MEDS: GABAPENTIN 300 MG CAPSULE PO SCH (08:41)
[2024-04-08] MEDS: PSYLLIUM SEED 1 EACH PACKET PO SCH (12:00)
[2024-04-08] MEDS: ATORVASTATIN 20 MG TABLET PO SCH (20:37)
[2024-04-08] MEDS: HYDROCORTISONE 2.5% CREAM 28G TP PRN (20:38)
[2024-04-08] MEDS: PANTOPRAZOLE 40 MG TAB DR PO SCH (20:38)
[2024-04-09] VITALS (7 sets, daily range): BP systolic 128–161; BP diastolic 55–73; PULSE 77–111; RESP 17–18; O2SAT 96–100
[2024-04-09] MEDS: LEVOTHYROXINE 75 MCG TABLET PO SCH (06:25)
[2024-04-09] MEDS: LEVOTHYROXINE 75 MCG TABLET ONE (06:26)
[2024-04-09] MEDS: EMPAGLIFLOZIN 25MG TABLET PO SCH (08:09)
[2024-04-09] MEDS: BISACODYL 5 MG TABLET.DR PO PRN (20:01)
[2024-04-09 22:41] LABS: APPEARANCE,URINE CLEAR (CLEAR); BILIRUBIN,URINE NEGATIVE (NEGATIVE); GLUCOSE, URINE (UA) >=1000 mg/dL (NEGATIVE); KETONES,URINE 20 mg/dL (NEGATIVE); LEUKOCYTE ESTERASE ,URINE NEGATIVE Leu/uL (NEGATIVE); NITRATE,URINE NEGATIVE (NEGATIVE); OCCULT BLOOD,URINE NEGATIVE (NEGATIVE); PH,URINE 5.5 (5.0-8.0); PROTEIN,URINE NEGATIVE (NEGATIVE); UROBILINOGEN,URINE 0.2 mg/dL (0.2-1.0)
[2024-04-09 22:42] LABS: ADD UA MICROSCOPIC YES; COLOR,URINE Light-Yellow (YELLOW)
[2024-04-09 22:44] LABS: RBC,URINE 0-1 /HPF (0-1); SQUAMOUS EPITHELIAL CELL,UR RARE /HPF (0-2); YEAST,URINE BUDDING RARE /HPF (None Seen)
[2024-04-10] VITALS (7 sets, daily range): BP systolic 128–146; BP diastolic 66–96; PULSE 85–105; RESP 17–19; O2SAT 98–99
[2024-04-10] MEDS: LACTULOSE 20 GM/30 ML UDCUP PO SCH (08:31)
[2024-04-10] MEDS ORDERED: BISACODYL 10 MG SUPP.RECT RC PRN (17:30)
[2024-04-11 00:12] VITALS: BP 130/61; PULSE 90; RESP 18
[2024-04-11 03:47] LABS: HEMATOCRIT 36.6 % (36-48); MEAN CORPUSCULAR HEMOGLOBIN 29.6 pg (27.0-33.0); MEAN CORPUSCULAR HGB CONC 32.8 g/dL (32.0-36.0); MEAN CORPUSCULAR VOLUME 90.1 fL (79-99); RED BLOOD CELL COUNT(AUTO) 4.06 MIL/uL (4.00-5.50); RED CELL DISTRIBUTION WIDTH 13.3 % (11.0-15.5); WHITE BLOOD COUNT (AUTO) 9.5 K/uL (4.8-10.8)
[2024-04-11 04:00] VITALS: BP 117/67; PULSE 76; RESP 20
[2024-04-11 04:16] LABS: CREATININE 0.8 mg/dL (0.5-1.0)
[2024-04-11] MEDS: ACETAMINOPHEN 325 MG TAB PO PRN (09:02)
[2024-04-11 09:08] VITALS: BP 130/74; PULSE 78; RESP 17
[2024-04-11 10:30] VITALS: TEMP 97.7
[2024-04-11 12:52] VITALS: BP 137/68; PULSE 87; RESP 18
[2024-04-11] MEDS: OXYCODONE HCL 5 MG TAB PO PRN (13:47)
[2024-04-15] MEDS ORDERED: TIRZEPATIDE 7.5 MG SQ SCH (09:00)
[2024-04-15] MEDS ORDERED: ALENDRONATE SODIUM 35 MG TAB PO SCH (09:00)
== END 2024-04-11 14:05 | DRG 516 ==
LOC: EDH 16:06 → 4AH 18:01
PROVIDERS: ADMIT Orthopaedic Surgery; ATTEND Orthopaedic Surgery
PROC: 0QSD04Z Reposition Right Patella with Internal Fixation Device, Open Approach (ICD-10-PCS; principal; 2024-04-07 13:00)
PROC: 0PS504Z Reposition Right Scapula with Internal Fixation Device, Open Approach (ICD-10-PCS; 2024-04-07 13:00)
DX: S42.91XA Fracture of right shoulder girdle, part unspecified, initial encounter for closed fracture (principal); S82.001A Unspecified fracture of right patella, initial encounter for closed fracture; S40.011A Contusion of right shoulder, initial encounter; E78.5 Hyperlipidemia, unspecified; E03.9 Hypothyroidism, unspecified; E11.22 Type 2 diabetes mellitus with diabetic chronic kidney disease; N18.9 Chronic kidney disease, unspecified; I12.9 Hypertensive chronic kidney disease with stage 1 through stage 4 chronic kidney disease, or unspecified chronic kidney disease; W01.0XXA Fall on same level from slipping, tripping and stumbling without subsequent striking against object, initial encounter; Y99.8 Other external cause status; Y93.89 Activity, other specified; Y92.009 Unspecified place in unspecified non-institutional (private) residence as the place of occurrence of the external cause; Z83.3 Family history of diabetes mellitus; Z88.1 Allergy status to other antibiotic agents; Z79.899 Other long term (current) drug therapy; Z79.84 Long term (current) use of oral hypoglycemic drugs
CPT/HCPCS: 36415; 71045; 73030; 73560; 80048; 81001; 82948; 85027; 85210; 93005; G0378; J0690; J1200; J1650; J1815; J2175; J2250; J2270; J2405; J2704; J2710; J2795; J3010; J3490; J7030; A4216; A4222; A4223

== ENCOUNTER 2024-12-10 17:22 | Emergency (ER) | payer OTHER, MEDICARE ==
[~2024-12-10] VITALS: Ht 170.2 cm; Wt 60.3 kg
[~2024-12-10 17:22] MED LIST changes: +ALEN70TA80 PO; -AMOX-427 PO; -CINN500C PO; -DULA1.5P SQ; -IBUP-2070 PO; +LEVO75TA10 PO; -LEVO88TA4 PO; -METF-444 PO; -METO-408 PO; -MULT-1258 PO; -NIRM1TAB PO; +TIRZ7.5P SQ
[2024-12-10 17:28] VITALS: BP 142/67; PULSE 78; RESP 16; TEMP 98; O2SAT 98
--- NOTE | 2024-12-10 17:29 | ERN ---
ED Note History of Present Illness Stated Complaint: LEFT HAND LACERATION Chief Complaint: Laceration/Avulsion Time Seen by MD: 17:23 Dictation: PATIENT IS A 74-YEAR-OLD FEMALE STATES SHE WAS REACHING INTO HER CAR UNDER THE SEAT WHEN SHE CUT HERSELF ON A PIECE OF METAL UNDERNEATH THE CAR SEAT. SHE HAS A LACERATION TO THE LEFT 3RD METACARPAL JOINT FULL RANGE OF MOTION NO LAXITY. LAST TETANUS SHOT IS UNKNOWN. NEUROVASCULAR CMS INTACT TO FINGER. SHE STATES SHE IS A DIABETIC SHE HAS A 2ND LACERATION TO THE PALMAR ASPECT OF HER LEFT HAND THE BASE OF THE 5TH FINGER Allergies: Coded Allergies: Tetracyclines (Verified Allergy, Unknown, 12/29/18) adhesive (Unverified Adverse Reaction, Unknown, RASH, 04/07/24) Home Meds Active Scripts Mupirocin (Bactroban 2% Oint) 2 % Oint, 1 APPL TP TID for 5 Days, #15 GM 0 Refills apply to affected area(s) WITH A BAND-AID FOR FIVE DAYS Prov:KASEY MYERS CORE WINDER 12/10/24 Clindamycin HCl (Clindamycin HCl) 300 Mg Capsule, 1 CAP PO QID for 7 Days, #28 CAP 0 Refills Prov:KASEY MYERS CORE WINDER 12/10/24 Reported Medications Levothyroxine Sodium (Levothyroxine Sodium) 75 Mcg Tablet, 75 MCG PO ACBKFST, TAB 04/06/24 Tirzepatide (Mounjaro) 7.5 Mg/0.5 Ml Pen.injctr, 7.5 MG SQ QWEEK 04/06/24 Alendronate Sodium (Alendronate Sodium) 70 Mg Tablet, 70 MG PO QWEEK, TAB 04/06/24 Atorvastatin Calcium (Atorvastatin Calcium) 20 Mg Tablet, 20 MG PO AM, TAB 07/24/20 Empagliflozin (Jardiance) 25 Mg Tablet, 25 MG PO AM, TAB 07/24/20 Omeprazole (Omeprazole) 40 Mg Capsule.dr, 40 MG PO BID, CAP 12/29/18 Past Medical History Past Medical History: Diabetes-Type II, Hypothyroid Surgical History: Cholecystectomy Surgical History Other: Partial thyroidectomy Social History: Negative, Lives with family History: Not Applicable RN Note Reviewed/Agreed w/PFSH: Yes Review of System Dictation CONSTITUTIONAL: NEGATIVE EXCEPT FOR HPI HEAD/FACE: NEGATIVE EXCEPT FOR HPI EENT: NEGATIVE EXCEPT FOR HPI RESPIRATORY: NEGATIVE EXCEPT FOR HPI GASTROINTESTINAL/ABDOMINAL: NEGATIVE EXCEPT FOR HPI GENITOURINARY: NEGATIVE EXCEPT FOR HPI MUSCULOSKELETAL: NEGATIVE EXCEPT FOR HPI INTEGUMENTARY: NEGATIVE EXCEPT FOR HPI LACERATION TO LEFT HAND NEUROLOGICAL/PSYCH: NEGATIVE EXCEPT FOR HPI HEMATOLOGIC/LYMPHATIC: NEGATIVE EXCEPT FOR HPI ALL SYSTEMS NEGATIVE, EXCEPT NOTED ABOVE. 13 POINT REVIEW OF SYSTEMS ASSESSED AND ALL NEGATIVE EXCEPT FOR ABOVE. Initial Vital Sign VS Vital Signs Date Time Temp Pulse Resp B/P (MAP) Pulse Ox O2 Delivery O2 Flow Rate FiO2 12/10/24 17:25 98.1 75 16 142/67 98 Room Air 0 12/10/24 17:28 21 Physical Exam Dictation VITAL SIGNS REVIEWED PATIENT DENIES PAIN AT THIS TIME. GENERAL APPEARANCE: ALERT, ORIENTED X 3, NO ACUTE DISTRESS, WELL DEVELOPED, NOURISHED. HEAD AND FACE: NON-TRAUMATIC. EYES: PERRL, PINK CONJUNCTIVAS, EYELID NO TRAUMA, ANTERIOR CHAMBER WITH ARCUS SENILIS. EARS: PINNAS INTACT AND NO SIGNS OF TRAUMA OR ERYTHEMA EAR CANALS CLEAR AND NO DISCHARGE TM NO ERYTHEMA NOSE: NO DISCHARGE, NO BLEEDING. OROPHARYNX: MOUTH NORMAL, TONGUE PINK, PHARYNX CLEAR,NO ERYTHEMA, TONSILS NO EXUDATES, NO ABSCESSES NOTED, MUCOUS MEMBRANE MOIST NECK: SUPPLE, NON-TENDER, NO THYROMEGALY, NO MASSES, NO JVD, NO BRUITS BREAST:DEFERRED CHEST:NO TENDERNESS, NO CREPITUS, NO PARADOXICAL MOVEMENT, NO RETRACTIONS LUNGS:CLEAR, WELL-VENTILATED, SYMMETRIC, NO RALES, NO WHEEZING, NO RHONCHI, NO STRIDOR, GOOD BREATH SOUNDS BILATERALLY HEART: REGULAR RATE, REGULAR RHYTHM, NO MURMUR, NO GALLOPS VASCULAR: NO PERIPHERAL EDEMA, ABDOMEN: SOFT, POSITIVE BOWEL SOUNDS, NONDISTENDED, NO GUARDING, NONTENDER, NO REBOUND, NO MASSES NO HEPATOMEGALY, NO SPLENOMEGALY, NO RAMOS'S SIGN, NO HERNIAS. RECTAL: DEFERRED GENITAL: DEFERRED NEUROLOGICAL: NORMAL SPEECH, MOTOR FUNCTION INTACT, SENSORY FUNCTION INTACT MUSCULOSKELETAL: NECK NONTENDER, FULL RANGE OF MOTION, BACK NONTENDER, FULL RANGE OF MOTION, EXTREMITIES: NONTENDER, FULL RANGE OF MOTION FULL RANGE OF MOTION TO LEFT HAND SKIN: COLOR PINK, DRY, 2.5 CM LACERATION TO LEFT 3RD METACARPAL JOINT, 2ND 1 CM LACERATION TO THE PALMAR ASPECT OF THE SAME HAND BASE OF THE LEFT 5TH FINGER NEUROVASCULAR CMS INTACT TO FINGER LYMPHATIC: DEFERRED Results (Laboratory/Radiology) Labs Reviewed?: Yes ED Course ED Course Orders Procedure Category Date Status Time Neomy PHA 12/10/24 Complete Sulf/Bacitra/Polymyxin 17:30 Tetanus,Diphtheria PHA 12/10/24 Complete Tox [Adult] (Diphther 17:30 Clindamycin 150mg Cap PHA 12/10/24 Complete (Cleocin 150mg Cap 17:30 Lidocaine Hcl 1% 20ml PHA 12/10/24 Complete Vial (Lidocaine Hc 17:30 Current Medications Medications (Trade) Dose Ordered Sig/Katelynn Route PRN Reason Start Time Stop Time Status Last Admin Dose Admin Clindamycin HCl (Cleocin 150mg Cap) 600 mg ONCE ONCE PO 12/10/24 17:30 12/10/24 17:32 DC 12/10/24 18:21 Lidocaine HCl (Lidocaine HCl 1% 20ml Vial) 5 ml ONCE INJ 12/10/24 17:30 12/10/24 18:32 DC 12/10/24 18:21 Neomycin/ Polymyxin/ Bacitracin (Triple Antibiotic Ointment) 1 appl ONCE ONCE TP 12/10/24 17:30 12/10/24 17:32 DC 12/10/24 18:21 Tetanus/ Diphtheria Toxoids Adsorbed (DiphthERIA-teTANUS TOXOID [ADULT]/ DECAVAC) 0.5 ml ONCE ONCE IM 12/10/24 17:30 12/10/24 17:32 DC 12/10/24 18:24 Vital Signs Date Time Temp Pulse Resp B/P (MAP) Pulse Ox O2 Delivery O2 Flow Rate FiO2 12/10/24 17:28 98.1 78 16 142/67 98 Room Air* 0 21 12/10/24 17:25 98.1 75 16 142/67 98 Room Air 0 18:00 HOURS PATIENT WAS UPDATED WITH HER TETANUS AND STARTED ON CLINDAMYCIN DUE TO HER HISTORY OF DIABETES. ALL LACERATIONS WERE CLOSED, WOUND CARE INSTRUCTIONS GIVEN Medical Decision Making MDM MEDICAL DISCHARGE MAKING BASED ON LACERATION CLOSER TO LEFT HAND X2 TETANUS WAS UPDATED CLINDAMYCIN INITIATED DUE TO HISTORY OF DIABETES. NEUROVASCULAR CMS INTACT LEFT HAND PATIENT GIVEN WOUND CARE INSTRUCTION Procedure Procedure Dictation: 618/PROCEDURE EXPLAINED TO PATIENT SHE AGREED TO PROCEED LACERATION TO THE 3RD METACARPAL JOINT 2.5 CM CLEANSED WITH WOUND CLEANSER THOROUGHLY USED2 ML 1% LIDOCAINE PLAIN FOR LOCAL ANESTHETIC CLOSED WITH ONE RUNNING 4-0 PROLENE SUTURE SINGLE-LAYER CLOSURE PATIENT TOLERATED WELL 2ND LACERATION 1 CM TO PALMAR BASE LEFT 5TH FINGER CLEANSED WITH WOUND CLEANSER USED ONE ML LIDOCAINE 1% PLAIN LOCAL ANESTHETIC CLOSED WITH ONE SINGLE 4-0 PROLENE SIMPLE INTERRUPTED SUTURE SINGLE-LAYER CLOSURE PATIENT TOLERATED WELL DX & DISP Disposition: Discharge Departure Impression: Primary Impression: Laceration of hand, left Additional Impression: Laceration of left palm Condition: Stable Scripts Mupirocin (Bactroban 2% Oint) 2 % Oint 1 APPL TP TID for 5 Days, #15 GM 0 Refills apply to affected area(s) WITH A BAND-AID FOR FIVE DAYS Prov: KASEY MYERS NP 12/10/24 Clindamycin HCl (Clindamycin HCl) 300 Mg Capsule 1 CAP PO QID for 7 Days, #28 CAP 0 Refills Prov: KASEY MYERS NP 12/10/24 Additional Instructions: FOLLOW-UP WITH PRIMARY CARE PROVIDER IN 1 TO 2 DAYS. TAKE MEDICATIONS DIRECTED HERE IN THE EMERGENCY ROOM. OKAY TO CONTINUE HOME MEDICATIONS UNLESS OTHERWISE DISCUSSED DURING YOUR VISIT IN THE EMERGENCY ROOM TODAY. RETURN TO YOUR NEAREST EMERGENCY ROOM IF SYMPTOMS WORSEN OR IF THERE IS NO IMPROVEMENT. CALL 911 IF YOU NEED IMMEDIATE ASSISTANCE. TAKE TYLENOL OR MOTRIN OVER-THE- COUNTER NEEDED AND IF NO CONTRAINDICATIONS ARE PRESENT. INCREASE ORAL HYDRATION. A WOUND CULTURE OR URINE CULTURE WAS ORDERED HERE IN THE EMERGENCY ROOM DEPARTMENT PLEASE FOLLOW-UP WITH PRIMARY CARE PROVIDER AND ADVISE THEM TO GET REPEAT PORTS FROM OUR FACILITY. IF YOU HAD ANY LILIA WRAP/SPLINTS THAT WERE APPLIED HERE, PLEASE DO NOT REMOVE THEM UNTIL YOU SEE YOUR PRIMARY CARE OR SPECIALTY. KEEP LACERATION REPAIR CLEAN AND DRY., SUTURES OUT IN 10 DAYS. TAKE ANTIBIOTICS DIRECTED UNTIL GONE. APPLY BACTROBAN OINTMENT3 TIMES A DAY FOR FIVE DAYS WITH BAND-AID TO SUTURE REPAIRS. Referrals: ANGUS KHANNA MD (PCP) Time of Disposition: 18:02 I have reviewed the case, and I agree with, Diagnosis and Plan KASEY MYERS NP Dec 10, 2024 17:29 EDU HAYES DO Dec 12, 2024 07:36
[2024-12-10] MEDS ORDERED: MUPI22O TP (18:03)
[2024-12-10] MEDS ORDERED: CLIN-141 PO (18:03)
[2024-12-10] MEDS: CLINDAMYCIN 150 MG CAP PO ONE (18:21)
[2024-12-10] MEDS: NEOMY SULF/BACITRA/POLYMYXIN B 1 EACH PACKET TP ONE (18:21)
[2024-12-10] MEDS: LIDOCAINE HCL 1% 20 ML VIAL INJ SCH (18:21)
[2024-12-10] MEDS: teTANUS/diphthERIA TOXOID [ADULT] 0.5 ML VIAL IM ONE (18:24)
== END 2024-12-10 18:32 | disposition home or self-care (01) ==
LOC: EDH 17:22
DX: S61.412A Laceration without foreign body of left hand, initial encounter (principal); E03.9 Hypothyroidism, unspecified; E11.9 Type 2 diabetes mellitus without complications; Z79.85 Long-term (current) use of injectable non-insulin antidiabetic drugs; Z79.899 Other long term (current) drug therapy; Z90.49 Acquired absence of other specified parts of digestive tract; W26.8XXA Contact with other sharp object(s), not elsewhere classified, initial encounter; Y93.89 Activity, other specified; Y92.89 Other specified places as the place of occurrence of the external cause; Y99.8 Other external cause status
CPT/HCPCS: 12002; 90471; 90714; 99283

== ENCOUNTER → 2024-12-13 | Outpatient (CLI) | payer OTHER, MEDICARE ==
[~2024-12-13] MED LIST changes: +CLIN-141 PO; +MUPI22O TP
--- NOTE | 2024-12-15 12:16 | HMCIMG ---
MAMMO SCREENING BILATERAL HISTORY: Screening mammogram. COMPARISON: 04/11/2022 TECHNIQUE: Bilateral screening mammogram with CAD was performed with craniocaudal and mediolateral oblique projections. FINDINGS: There are scattered areas of fibroglandular density. There is no evidence of a dominant mass, or suspicious microcalcification. There is no evidence of nipple retraction or skin thickening. IMPRESSION: 1. Stable mammogram. Patient was entered into a reminder system with a target due date for their next mammogram. BI-RADS: CATEGORY 2: BENIGN FINDINGS Recommend monthly self breast exam as well as annual clinical examination. A negative x-ray should not delay biopsy if a dominant or clinically suspicious mass is present, since 8-10% of cancers are not identified by mammography. Dense breasts particularly, may obscure an underlying neoplasm. Some of these may be detected clinically and therefore, clinical examination is an essential part of breast evaluation.
== END | disposition home or self-care (01) ==
LOC: RAH 07:34
PROVIDERS: ATTEND Internal Medicine
DX: Z12.31 Encounter for screening mammogram for malignant neoplasm of breast (principal)
CPT/HCPCS: 77067

== ENCOUNTER 2024-12-21 13:34 | Emergency (ER) | payer OTHER, MEDICARE ==
[~2024-12-21] VITALS: Ht 170.2 cm; Wt 61.2 kg
[2024-12-21 13:51] VITALS: BP 120/50; PULSE 62; RESP 16; TEMP 98.1; O2SAT 98
--- NOTE | 2024-12-21 13:58 | ERN ---
ED Note History of Present Illness Stated Complaint: SUTURE REMOVAL Chief Complaint: Suture/Staple Removal Time Seen by MD: 13:37 Dictation: PATIENT IS HERE FOR REQUEST OF SUTURE REMOVALS [place]AC[place] [facility] [place]. PATIENT HE HAD BEEN SUTURED, HAS HAD NO FEVER NO CHILLS NO NAUSEA VOMITING. TOOK HER ANTIBIOTICS UNTIL GONE. NO ERYTHEMA NO REDNESS OR SWELLING TO LEFT 3RD METACARPAL JOINT LACERATION OR PALMAR LACK. Allergies: Coded Allergies: Tetracyclines (Verified Allergy, Unknown, 12/29/18) adhesive (Unverified Adverse Reaction, Unknown, RASH, 04/07/24) Home Meds Active Scripts Mupirocin (Bactroban 2% Oint) 2 % Oint, 1 APPL TP TID for 5 Days, #15 GM 0 Refills apply to affected area(s) WITH A BAND-AID FOR FIVE DAYS Prov:KASEY MYERS NP 12/10/24 Clindamycin HCl (Clindamycin HCl) 300 Mg Capsule, 1 CAP PO QID for 7 Days, #28 CAP 0 Refills Prov:KASEY MYERS NP 12/10/24 Reported Medications Levothyroxine Sodium (Levothyroxine Sodium) 75 Mcg Tablet, 75 MCG PO ACBKFST, TAB 04/06/24 Tirzepatide (Mounjaro) 7.5 Mg/0.5 Ml Pen.injctr, 7.5 MG SQ QWEEK 04/06/24 Alendronate Sodium (Alendronate Sodium) 70 Mg Tablet, 70 MG PO QWEEK, TAB 04/06/24 Atorvastatin Calcium (Atorvastatin Calcium) 20 Mg Tablet, 20 MG PO AM, TAB 07/24/20 Empagliflozin (Jardiance) 25 Mg Tablet, 25 MG PO AM, TAB 07/24/20 Omeprazole (Omeprazole) 40 Mg Capsule.dr, 40 MG PO BID, CAP 12/29/18 Past Medical History Past Medical History: Diabetes-Type II, Hypothyroid Additional Past Medical Hx: THYROID Surgical History: Cholecystectomy Surgical History Other: Partial thyroidectomy, KNEE, SHOULDER Social History: Negative, Lives with family History: Not Applicable RN Note Reviewed/Agreed w/PFSH: Yes Review of System Dictation CONSTITUTIONAL: NEGATIVE EXCEPT FOR HPI HEAD/FACE: NEGATIVE EXCEPT FOR HPI EENT: NEGATIVE EXCEPT FOR HPI RESPIRATORY: NEGATIVE EXCEPT FOR HPI GASTROINTESTINAL/ABDOMINAL: NEGATIVE EXCEPT FOR HPI GENITOURINARY: NEGATIVE EXCEPT FOR HPI MUSCULOSKELETAL: NEGATIVE EXCEPT FOR HPI INTEGUMENTARY: NEGATIVE EXCEPT FOR HPI LACERATIONS WITH SUTURES TO LEFT HAND X2 NEUROLOGICAL/PSYCH: NEGATIVE EXCEPT FOR HPI HEMATOLOGIC/LYMPHATIC: NEGATIVE EXCEPT FOR HPI ALL SYSTEMS NEGATIVE, EXCEPT NOTED ABOVE. 13 POINT REVIEW OF SYSTEMS ASSESSED AND ALL NEGATIVE EXCEPT FOR ABOVE. Initial Vital Sign VS Vital Signs Date Time Temp Pulse Resp B/P (MAP) Pulse Ox O2 Delivery O2 Flow Rate FiO2 12/21/24 13:35 98.6 62 16 121/50 100 Room Air 12/21/24 13:51 0 21 Physical Exam Dictation VITAL SIGNS REVIEWED NO PAIN GENERAL APPEARANCE: ALERT, ORIENTED X 3, NO ACUTE DISTRESS, WELL DEVELOPED, NOURISHED. HEAD AND FACE: NON-TRAUMATIC. EYES: PERRL, PINK CONJUNCTIVAS, EYELID NO TRAUMA, ANTERIOR CHAMBER WITH ARCUS S ENILIS. EARS: PINNAS INTACT AND NO SIGNS OF TRAUMA OR ERYTHEMA EAR CANALS CLEAR AND NO DISCHARGE TM NO ERYTHEMA NOSE: NO DISCHARGE, NO BLEEDING. OROPHARYNX: MOUTH NORMAL, TONGUE PINK, PHARYNX CLEAR,NO ERYTHEMA, TONSILS NO EXUDATES, NO ABSCESSES NOTED, MUCOUS MEMBRANE MOIST NECK: SUPPLE, NON-TENDER, NO THYROMEGALY, NO MASSES, NO JVD, NO BRUITS BREAST:DEFERRED CHEST:NO TENDERNESS, NO CREPITUS, NO PARADOXICAL MOVEMENT, NO RETRACTIONS LUNGS:CLEAR, WELL-VENTILATED, SYMMETRIC, NO RALES, NO WHEEZING, NO RHONCHI, NO STRIDOR, GOOD BREATH SOUNDS BILATERALLY HEART: REGULAR RATE, REGULAR RHYTHM, NO MURMUR, NO GALLOPS VASCULAR: NO PERIPHERAL EDEMA, ABDOMEN: SOFT, POSITIVE BOWEL SOUNDS, NONDISTENDED, NO GUARDING, NONTENDER, NO REBOUND, NO MASSES NO HEPATOMEGALY, NO SPLENOMEGALY, NO RAMOS'S SIGN, NO HERNIAS. RECTAL: DEFERRED GENITAL: DEFERRED NEUROLOGICAL: NORMAL SPEECH, MOTOR FUNCTION INTACT, SENSORY FUNCTION INTACT MUSCULOSKELETAL: NECK NONTENDER, FULL RANGE OF MOTION, BACK NONTENDER, FULL RANGE OF MOTION, EXTREMITIES: NONTENDER, FULL RANGE OF MOTION SKIN: COLOR PIN LACERATION TO LEFT 3RD METACARPAL JOINT WITH SINGLE RUNNING SUTURE WELL APPROXIMATED NO INFLAMMATION NO SWELLING. SECOND LACERATION TO PALMAR HAND BASE OF THE 5TH FINGER SINGLE SUTURE NO ERYTHEMA SWELLING LYMPHATIC: DEFERRED Results (Laboratory/Radiology) Labs Reviewed?: Yes ED Course ED Course Vital Signs Date Time Temp Pulse Resp B/P (MAP) Pulse Ox O2 Delivery O2 Flow Rate FiO2 12/21/24 13:51 98.1 62 16 120/50 98 Room Air* 0 21 12/21/24 13:35 98.6 62 16 121/50 100 Room Air Medical Decision Making MDM MEDICAL DECISION-MAKING BASED ON REMOVAL OF SUTURES AND EVALUATION OF WOUND. SUTURES REMOVED AND BAND-AIDS APPLIED SKIN WELL APPROXIMATED PATIENT TOLERATED WELL Procedure Procedure Dictation: 1355/PROCEDURE EXPLAINED TO PATIENT SHE AGREED TO PROCEED SUTURE REMOVED TO LEFT HAND INTACT X2 SKIN IS WELL APPROXIMATED AND HEALING PATIENT TOLERATED WELL DX & DISP Disposition: Discharge Departure Impression: Primary Impression: Encounter for removal of sutures Condition: Stable Additional Instructions: FOLLOW-UP WITH PRIMARY CARE PROVIDER IN 1 TO 2 DAYS. TAKE MEDICATIONS DIRECTED HERE IN THE EMERGENCY ROOM. OKAY TO CONTINUE HOME MEDICATIONS UNLESS OTHERWISE DISCUSSED DURING YOUR VISIT IN THE EMERGENCY ROOM TODAY. RETURN TO YOUR NEAREST EMERGENCY ROOM IF SYMPTOMS WORSEN OR IF THERE IS NO IMPROVEMENT. CALL 911 IF YOU NEED IMMEDIATE ASSISTANCE. TAKE TYLENOL OR MOTRIN [id number] NEEDED AND IF NO CONTRAINDICATIONS ARE PRESENT. INCREASE ORAL HYDRATION. A WOUND CULTURE OR URINE CULTURE WAS ORDERED HERE IN THE EMERGENCY ROOM DEPARTMENT PLEASE FOLLOW-UP WITH PRIMARY CARE PROVIDER AND ADVISE THEM TO GET REPEAT PORTS FROM OUR FACILITY. IF YOU HAD ANY LILIA WRAP/SPLINTS THAT WERE APPLIED HERE, PLEASE DO NOT REMOVE THEM UNTIL YOU SEE YOUR PRIMARY CARE OR SPECIALTY. FOLLOW UP WITH YOUR PRIMARY CARE DOCTOR IN 1-2 DAYS. CONTINUE WITH BAND-AID TO LACERATIONS FOR THE NEXT TWO DAYS. Referrals: ANGUS KHANNA MD (PCP) Time of Disposition: 13:57 I have reviewed the case, and I agree with, Diagnosis and Plan KASEY MYERS NP Dec 21, 2024 13:58
--- NOTE | 2024-12-21 14:10 | NUR ---
unable to depart due to reg process
== END 2024-12-21 14:04 | disposition home or self-care (01) ==
LOC: EDH 13:34
DX: S61.213D Laceration without foreign body of left middle finger without damage to nail, subsequent encounter (principal); E03.9 Hypothyroidism, unspecified; E11.9 Type 2 diabetes mellitus without complications; Z79.85 Long-term (current) use of injectable non-insulin antidiabetic drugs; Z79.899 Other long term (current) drug therapy; Z90.49 Acquired absence of other specified parts of digestive tract; X58.XXXD Exposure to other specified factors, subsequent encounter
CPT/HCPCS: 99282

== ENCOUNTER → 2024-12-28 | Outpatient (CLI) | payer OTHER, MEDICARE ==
[2024-12-28 08:12] LABS: BASOPHILS # (AUTO) 0.06 K/uL (0.00-0.20); BASOPHILS % (AUTO) 1.2 % (0.0-5.0); EOSINOPHILS # (AUTO) 0.11 K/uL (0.00-0.70); EOSINOPHILS % (AUTO) 2.2 % (0.0-8.0); HEMATOCRIT 44.1 % (36-48); IMMATURE GRANULOCYTE ABSOLUTE 0.04 K/uL (0-1); LYMPHOCYTES # (AUTO) 1.8 K/uL (1.0-4.8); LYMPHOCYTES % (AUTO) 36.1 % (21.0-51.0); MEAN CORPUSCULAR HEMOGLOBIN 29.9 pg (27.0-33.0); MEAN CORPUSCULAR HGB CONC 32.7 g/dL (32.0-36.0); MEAN CORPUSCULAR VOLUME 91.5 fL (79-99); MONOCYTES # (AUTO) 0.4 K/uL (0.1-1.0); MONOCYTES % (AUTO) 8.8 % (3.0-13.0); NEUTROPHILS # (AUTO) 2.6 K/uL (1.8-7.7); NEUTROPHILS % (AUTO) 50.9 % (40.0-77.0); PLATELET COUNT (AUTO) 257 K/uL (130-400); RED BLOOD CELL COUNT(AUTO) 4.82 MIL/uL (4.00-5.50); RED CELL DISTRIBUTION WIDTH 13.8 % (11.0-15.5)
[2024-12-28 08:38] LABS: HEMOGLOBIN A1C 6.3 % (4.0-6.0)
[2024-12-28 08:52] LABS: ALBUMIN 3.7 g/dL (3.5-5.0); BILIRUBIN,DIRECT 0.1 mg/dL (0.0-0.3); BILIRUBIN,TOTAL 0.6 mg/dL (0.2-1.0); CREATININE 0.9 mg/dL (0.5-1.0); POTASSIUM 4.4 mmol/L (3.5-5.1); THYROID STIMULATING HORMONE 3.38 uIU/mL (0.36-3.74); TOTAL PROTEIN, SERUM 7.3 g/dL (6.0-8.3)
== END | disposition home or self-care (01) ==
LOC: LAB 07:45
PROVIDERS: ATTEND Internal Medicine
DX: Z12.31 Encounter for screening mammogram for malignant neoplasm of breast (principal); K21.9 Gastro-esophageal reflux disease without esophagitis; E11.65 Type 2 diabetes mellitus with hyperglycemia; Z23 Encounter for immunization; E03.9 Hypothyroidism, unspecified; E78.5 Hyperlipidemia, unspecified
CPT/HCPCS: 36415; 80053; 80061; 82247; 82248; 82306; 82607; 83036; 84443; 85025

== ENCOUNTER → 2025-05-23 | Outpatient (CLI) | payer OTHER, MEDICARE ==
[2025-05-23 10:11] LABS: IMMATURE GRANULOCYTE ABSOLUTE 0.03 K/uL (0-1); NUCLEATED RED BLOOD CELLS 0.0 % (0.0-0.19); PLATELET COUNT (AUTO) 212 K/uL (130-400); RED BLOOD CELL COUNT(AUTO) 4.93 MIL/uL (4.00-5.50); RED CELL DISTRIBUTION WIDTH 13.8 % (11.0-15.5); WHITE BLOOD COUNT (AUTO) 4.9 K/uL (4.8-10.8)
[2025-05-23 10:55] LABS: ASPARTATE AMINOTRANSFERASE 16.0 U/L (10-37); CREATININE 0.7 mg/dL (0.5-1.0); GLOMERULAR FILTR. RATE CALC 91.0 mL/min (>90); GLUCOSE,RANDOM 106.0 mg/dL (70-105); LDL DIRECT 116.0 mg/dL (0-99); SODIUM SERUM 134.0 mmol/L (136-145); TOTAL PROTEIN, SERUM 7.3 g/dL (6.0-8.3); UREA NITROGEN, BLOOD 14.0 mg/dL (7-18)
== END | disposition home or self-care (01) ==
LOC: LAB 09:31
PROVIDERS: ATTEND Internal Medicine
DX: E11.65 Type 2 diabetes mellitus with hyperglycemia (principal); E03.9 Hypothyroidism, unspecified; E55.9 Vitamin D deficiency, unspecified; E78.5 Hyperlipidemia, unspecified
CPT/HCPCS: 36415; 80053; 80061; 82306; 82607; 83036; 84443; 85025

== ENCOUNTER → 2025-09-01 | Outpatient (CLI) | payer OTHER, MEDICARE ==
--- NOTE | 2025-09-01 20:44 | HMCIMG ---
EXAM: MR Right Lower Extremity Without IV Contrast, Ankle. CLINICAL HISTORY: M76.61 Achilles tendinitis, right leg. TECHNIQUE: Multisequence, multiplanar magnetic resonance images of the right ankle without intravenous contrast. Series acquired: 4 ??? AX T2 ??? TR: 5198.0 ??? TE: 98.2 ??? ET: 18.0 ??? Thk: 3.0 5 ??? AX FSE STIR ??? TR: 74964.0 ??? TE: 51.7 ??? ET: 12.0 ??? Thk: 3.0 6 ??? SAG T1 FSE ??? TR: 644.0 ??? TE: 16.5 ??? ET: 10.0 ??? Thk: 3.5 7 ??? SAG T2 ??? TR: 4117.0 ??? TE: 99.1 ??? ET: 17.0 ??? Thk: 3.5 8 ??? SAG FSE STIR ??? TR: 6165.0 ??? TE: 39.8 ??? ET: 12.0 ??? Thk: 3.5 9 ??? COR PD FS ??? TR: 3813.0 ??? TE: 21.8 ??? ET: 8.0 ??? Thk: 3.0 10 ??? COR T1 FSE ??? TR: 782.0 ??? TE: 7.8 ??? ET: 8.0 ??? Thk: 3.0 11 ??? COR FSE STIR ??? TR: 9537.0 ??? TE: 47.7 ??? ET: 13.0 ??? Thk: 3.0 CONTRAST: None. COMPARISON: None provided.FINDINGS Ligaments Anterior talofibular: Unremarkable. Posterior talofibular: Unremarkable. Anterior tibiofibular: Unremarkable. Posterior tibiofibular: Unremarkable. Calcaneofibular: Unremarkable. Deltoid: Unremarkable. Spring ligament: Unremarkable. Lisfranc ligament complex: Unremarkable. Tendons Achilles: Anterior convexity of the distal tendon without intratendinous STIR hyperintensity; no tear. Posterior tibial: Unremarkable. Flexor tendons: Tenosynovitis of the flexor hallucis longus with sheath fluid measuring up to 1.5 cm. Extensor tendons: Unremarkable. Peroneal tendons: Unremarkable. Bones Hairline nondisplaced fracture of the medial malleolus with low T1/high STIR marrow edema. No additional acute fracture or aggressive osseous lesion. Muscles Normal bulk and signal. Fluid Large tibiotalar joint effusion. Sinus Tarsi Unremarkable. Tarsal Tunnel Unremarkable. Plantar Fascia Unremarkable. Cartilage Unremarkable. Soft Tissues Diffuse subcutaneous and myofascial edema involving the distal leg, ankle, and visualized foot, compatible with cellulitic soft-tissue edema; no drainable collection.IMPRESSION : * Distal Achilles tendon contour prominence without intratendinous STIR hyperintensity, indicating no imaging evidence of Achilles tendinopathy or tear despite the clinical concern. * Acute/subacute hairline nondisplaced medial malleolar fracture with associated marrow edema. * Diffuse cellulitic soft-tissue and myofascial edema of the distal leg, ankle, and foot, without abscess. * Flexor hallucis longus tenosynovitis with sheath fluid distention up to 1.5 cm. * Large tibiotalar joint effusion, nonspecific. /[place]
== END | disposition home or self-care (01) ==
LOC: RAH 14:21
PROVIDERS: ATTEND Internal Medicine
DX: M65.871 Other synovitis and tenosynovitis, right ankle and foot (principal); M76.61 Achilles tendinitis, right leg; M25.471 Effusion, right ankle; R60.0 Localized edema
CPT/HCPCS: 73721